=== PATIENT | male | born 1975 | race Two or more races ===

== ENCOUNTER → 2025-01-18 | Outpatient (CLI) | payer BC, SELFPAY ==
[2025-01-18 10:06] LABS: Collection Type, Urine Clean Catch; Squamous Epithelial Cell,Urine 0 /hpf (0-5)
[2025-01-18 10:34] LABS: Bilirubin,Urine Negative (Negative); Blood,Urine Trace (Negative); Clarity,Urine Clear (Clear/Hazy); Color,Urine Lt-Yellow (Lt Yel-Yel); Glucose, Urine Negative (Negative); Ketones,Urine Negative (Negative); Leukocyte Esterase,Urine Negative (Negative); Nitrite,Urine Negative (Negative); PH,Urine 6.5 (5.0-7.0); Protein,Urine Negative (Neg - Trace); RBC,Urine 1 /hpf (0-3); Specific Gravity,Urine 1.022 (1.001-1.035); Urobilinogen,Urine Negative mg/dL (0.0-1.0); WBC,Urine 1 /hpf (0-5)
[2025-01-18 10:40] LABS: Basophils # (Auto) 0.1 Thou/mm3 (0.0-0.2); Basophils % (Auto) 1 % (0-2.5); Eosinophils # (Auto) 0.3 Thou/mm3 (0.0-0.5); Eosinophils % (Auto) 4 % (0-10); Hematocrit 43.1 % (41.0-53.0); Hemoglobin 14.7 g/dL (13.5-16.0); Immature Granulocytes Auto 0.02 Thou/mm3 (0.00-0.00); Lymphocytes # (Auto) 2.4 Thou/mm3 (1.0-4.8); Lymphocytes % (Auto) 32 % (10-50); Mean Corpuscular HGB Conc 34.1 g/dl (31.0-37.0); Mean Corpuscular Hemoglobin 30.8 pg (25.0-35.0); Mean Corpuscular Volume 90 fL (80-100); Monocytes # (Auto) 0.5 Thou/mm3 (0.0-0.8); Monocytes % (Auto) 6 % (0-12); Neutrophils # (Auto) 4.3 Thou/mm3 (1.8-7.7); Neutrophils % (Auto) 57 % (37-80); Nucleated Red Blood Cell # 0.00 Thou/mm3 (0.00-0.00); Nucleated Red Blood Cell % 0 /100 WBC (0); Platelet Count 136 Thou/mm3 (140-440); RDW Standard Deviation 43.4 fL (35.1-43.9); Red Blood Count 4.77 Miln/mm3 (4.50-5.90); White Blood Count 7.6 Thou/mm3 (3.8-10.6)
[2025-01-18 10:42] LABS: Vitamin D 25 Hydroxy Total 23.4 ng/mL (7.3-40.2)
[2025-01-18 10:49] LABS: Alanine Aminotransferase 28 U/L (10-49); Albumin, Serum 4.1 gm/dL (3.5-5.0); Albumin/Globulin Ratio 1.4 (1.2-2.2); Alkaline Phosphatase 97 U/L (46-116); Anion Gap 9 (7-16); Aspartate Amino Transferase 19 U/L (0-34); BUN/Creatinine Ratio 14 Ratio (12-20); Bilirubin,Total 0.7 mg/dL (0.3-1.2); Blood Urea Nitrogen 10 mg/dL (9-23); Calcium 8.9 mg/dL (8.3-10.6); Calcium (Corrected) 8.9 mg/dL (8.5-10.1); Carbon Dioxide 28.1 mMol/L (20.0-31.0); Cardiac Risk Estimate 3.9 RATIO (4.0-6.7); Chloride 106 mMol/L (98-107); Cholesterol 128 mg/dL (132-200); Creatinine (Component) 0.7 mg/dL (0.6-1.3); Globulin 2.9 gm/dL (2.3-3.5); Glucose 105 mg/dL (74-106); HDL Cholesterol 33 mg/dL (40-60); LDL Cholesterol,Calculated 79 mg/dL (0-130); Osmolality,Calculated 283 (275-295); Potassium 4.3 mMol/L (3.4-5.1); Sodium 143 mMol/L (136-145); Thyroid Stimulating Hormone 1.99 uIU/mL (0.55-4.78); Total Protein 7.0 gm/dL (5.7-8.2); Triglycerides 80 mg/dL (30-150); eGFR > 60 See Note
[2025-01-18 10:56] LABS: Creatinine MALB Rnd Ur 111 mg/dL (30-125); Microalbumin Creat Ratio 5 mg/gCrea (<30); Microalbumin, Random Urine 6 mg/L (0-300)
== END | disposition home or self-care (01) ==
LOC: COPL 09:12
PROVIDERS: PCP Family Medicine; Referring Provider Family Medicine; Visit Provider Family Medicine
DX: Z00.00 Encounter for general adult medical examination without abnormal findings (principal); I10 Essential (primary) hypertension; Z13.0 Encounter for screening for diseases of the blood and blood-forming organs and certain disorders involving the immune mechanism; Z13.29 Encounter for screening for other suspected endocrine disorder; Z13.21 Encounter for screening for nutritional disorder; Z13.220 Encounter for screening for lipoid disorders; Z13.1 Encounter for screening for diabetes mellitus
CPT/HCPCS: 36415; 80053; 80061; 81001; 82043; 82306; 82570; 84443; 85025; 87086

== ENCOUNTER → 2025-02-08 | Outpatient (CLI) | payer BC, SELFPAY ==
--- NOTE | 2025-02-08 13:20 | XR_ITS ---
Examination: Knee bilateral, 4 views Technique: Knee AP, lateral, each knee total 4 views Date and time of exam: February 08, 2025 1328 hours INDICATIONS: Bilateral knee pain beginning 3 weeks ago. 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
--- NOTE | 2025-02-08 13:20 | XR_ITS ---
Examination: Ankle Bilateral, 4 views Technique: AP lateral right and left ankles total 4 views Date and time: February 08, 2025 1335 hours INDICATIONS: Bilateral ankle pain beginning 3 weeks ago. FINDINGS: Bilateral mild osteoarthritis tibiotalar joints Bilateral small plantar bony calcaneal spurs No fractures IMPRESSION: Bilateral mild osteoarthritis tibiotalar joints Small bilateral plantar bony calcaneal spurs
[2025-02-08 15:04] LABS: C-Reactive Protein < 0.5 mg/dL (0.0-0.9); Uric Acid 5.5 mg/dL (3.7-9.2)
[2025-02-08 15:07] LABS: Sed Rate (ESR) 10 mm/hr (0-15)
[2025-02-10 14:30] LABS: RA Screen Negative (Negative)
[2025-02-15 11:03] LABS: ANA Screen, IFA NEGATIVE (NEGATIVE); CCP Antibody (IgG)* <16 Units
== END | disposition home or self-care (01) ==
LOC: CDIM 13:14 → COPL 14:04
PROVIDERS: PCP Family Medicine; Referring Provider Family Medicine; Visit Provider Family Medicine
DX: M25.562 Pain in left knee (principal); M25.561 Pain in right knee; M25.50 Pain in unspecified joint; M25.571 Pain in right ankle and joints of right foot; M25.572 Pain in left ankle and joints of left foot; M17.0 Bilateral primary osteoarthritis of knee; M19.072 Primary osteoarthritis, left ankle and foot; M19.071 Primary osteoarthritis, right ankle and foot; M77.32 Calcaneal spur, left foot; M77.31 Calcaneal spur, right foot
CPT/HCPCS: 36415; 73560; 73600; 84550; 85652; 86038; 86140; 86200; 86430